=== PATIENT | female | born 1990 ===

== ENCOUNTER 2018-08-02 20:46 | Inpatient (IN) | payer MEDICAID ==
[2018-08-02 22:53] LABS: Hematocrit 38.6 % (30.3-42.9); Hemoglobin 13.6 gm/dl (10.1-14.3); Mean Corpuscular HGB Conc 35 % (30-34); Mean Corpuscular Volume 83 fl (79-97); Platelet Count 152 K/mm3 (140-440); Red Blood Count 4.66 M/mm3 (3.65-5.03); Red Cell Distribution Width 14.7 % (13.2-15.2)
[2018-08-02] MEDS ORDERED: NARCAN 0.4 MG/1 ML IV PRN (22:53)
[2018-08-02] MEDS ORDERED: SUBLIMAZE IV PRN (22:53)
[2018-08-02] MEDS ORDERED: XYLOCAINE 2% INFILTRATI ONE (22:53)
[2018-08-02] MEDS ORDERED: NUBAIN IV PRN (22:53)
[2018-08-02] MEDS ORDERED: BRETHINE IVP PRN (22:53)
[2018-08-02] MEDS ORDERED: MINERAL OIL PO PRN (22:53)
[2018-08-02] MEDS ORDERED: CERVIDIL VG ONE (22:53)
[2018-08-02] MEDS ORDERED: BRETHINE SUB-Q PRN (22:53)
[2018-08-02] MEDS ORDERED: PITOCin/NS 30 UNIT/500ML 30 UNITS/500 ML BAG IV SCH ×2 (23:00)
[2018-08-02] MEDS ORDERED: PITOCin/NS 20 UNIT/1000ML DRIP 20 UNITS/1,000 ML BAG IV SCH (23:00)
--- NOTE | 2018-08-02 23:02 | History and Physical Report ---
History of Present Illness Date of examination: 08/02/18 Date of admission: 08/02/18 20:46 Chief complaint: Here for induction History of present illness: Pt is a 27 yo at 40.6 wks who presents for IOL for obesity. She has received care with [facility] since the first trimester. Her has been complicated by obesity, hydrocele, and large for gestational age fetus. She is GBS negative. Reports positive movement, denies LOF/bleeding/contractions. Past History Past Medical History: no pertinent history Past Surgical History: no surgical history - Obstetrical History Expected Date of Delivery: 07/27/18 Actual Gestation: 40 Week(s) 6 Day(s) : 1 Para: 0 Medications and Allergies Allergies Allergy/AdvReac Type Severity Reaction Status Date / Time No Known Allergies Allergy Unverified 08/02/18 21:42 Active Meds: Active Medications Butorphanol Tartrate (Stadol) 1 mg IV Q2H PRN PRN Reason: Pain, Moderate (4-6) Dinoprostone (Cervidil) 10 mg VG ONCE ONE Stop: 08/02/18 22:54 Ephedrine Sulfate (Ephedrine Sulfate) 10 mg IV Q2M PRN PRN Reason: Hypotension Fentanyl (Sublimaze) 100 mcg IV Q2H PRN PRN Reason: Labor Pain Oxytocin/Sodium Chloride (Pitocin/Ns 20 Unit/1000ml Drip) 20 units in 1,000 mls @ 125 mls/hr IV DIRECT FITO Oxytocin/Sodium Chloride (Pitocin/Ns 30 Unit/500ml) 30 units in 500 mls @ 1 mls/hr IV TITR FITO; Protocol Oxytocin/Sodium Chloride (Pitocin/Ns 30 Unit/500ml) 30 units in 500 mls @ 2 mls/hr IV TITR FITO; Protocol Lactated Ringer's (Lactated Ringers) 1,000 mls @ 125 mls/hr IV DIRECT FITO Lidocaine (Xylocaine 2%) 20 ml INFILTRATI ONCE ONE Stop: 08/02/18 22:54 Mineral Oil (Mineral Oil) 30 ml PO QHS PRN PRN Reason: Constipation Nalbuphine HCl (Nubain) 10 mg IV Q2H PRN PRN Reason: Pain, Moderate (4-6) Naloxone HCl (Narcan 0.4 Mg/1 Ml) 0.1 mg IV Q2MIN PRN PRN Reason: Res Rate </= 8 or 02 SAT < 92% Terbutaline Sulfate (Brethine) 0.25 mg SUB-Q ONCE PRN PRN Reason: Hyperstimulation/Hypertonicity Terbutaline Sulfate (Brethine) 0.25 mg IVP ONCE PRN PRN Reason: Hyperstimulation/Hypertonicity Review of Systems All systems: negative - Vital Signs Vital signs: Vital Signs Pulse BP 100 H 147/90 08/02/18 21:29 08/02/18 21:29 Temp Pulse Resp BP Pulse Ox 98.6 F 104 H 18 111/73 96 08/02/18 22:07 08/02/18 22:55 08/02/18 22:07 08/02/18 22:09 08/02/18 22:55 - Physical Exam Cardiovascular: Regular rate, Normal S1, Normal S2, No murmurs Lungs: Positive: Clear to auscultation, Normal air movement Abdomen: Positive: normal appearance (gravid), soft Genitourinary (Female): Positive: normal external genitalia, normal perenium Vagina: Positive: normal moisture Uterus: Positive: normal size (gravid), normal contour Extremities: Positive: normal - Obstetrical FHR: auscultation normal, category 1 Uterine Contraction Monitor Mode: External Cervical Dilatation: 1 Cervical Effacement Percentage: 50 station: -3 Uterine Contraction Pattern: Absent Results Result Diagrams: 08/02/18 22:28 Abnormal lab results 08/02/18 Range/Units 22:28 WBC 12.3 H (4.5-11.0) K/mm3 MCHC 35 H (30-34) % All other labs normal. Ultrasound: report reviewed (EFW 3887g, DUTCH 7.84cm) Assessment and Plan A: 27 yo at 40.6 wks EGA Obesity Fetus AGA per ultrasound hydrocele Cervix not favorable for induction GBS negative P: Initiate Cervidil NICU in room for delivery Re-assess progress after 12 hours of Cervidil or sooner PRN Anticipate
--- NOTE | 2018-08-03 08:35 | Ultrasound Report ---
PROCEDURE: US OB FOLLOW UP TECHNIQUE: Limited third trimester transabdominal obstetrical ultrasound of the pelvis utilizing gra yscale, color Doppler and M-mode technique HISTORY: EFW COMPARISONS: None provided FINDINGS: A single living intrauterine is present in cephalic presentation with recorded cardiac acti vity of 150 bpm and subjectively normal amniotic fluid volume and amniotic fluid index of approximate ly 7.5 cm. Incompletely visualized placenta and cervix. Biparietal diameter is 9.6 cm Head circumference is 34.6 cm Abdominal circumference is 35.9 cm Femoral length is 7.7 cm Composited biometric measurements corresponds to estimated gestational age of 39 weeks 5 days a nd delivery date of 08/04/2018. Estimated weight is 3887 g IMPRESSION: Single living intrauterine with subjectively normal amniotic fluid volume and estimated fet al weight of 3887 g. This document is electronically signed by Bryan Baker MD., August 03 2018 08:32:59 AM ET
--- NOTE | 2018-08-03 12:37 | Event Note ---
Date: 08/03/18 Late entry. Pt examined around 830 am. Pt slightly uncomfortable with cervidil in place. Category II tracing. Cervidil due to be removed at 1145 am. Routine intrapartum care.
[2018-08-03] MEDS: CYTOTEC VG SCH ×3 (13:58→21:30)
[2018-08-03] MEDS: LACTATED RINGERS 1,000 ML IV SCH (23:04)
[2018-08-03] MEDS: STADOL IV PRN (23:40)
[2018-08-04] MEDS: LACTATED RINGERS 1,000 ML IV SCH ×3 (00:27→15:11)
[2018-08-04] MEDS: STADOL IV PRN (03:39)
--- NOTE | 2018-08-04 05:30 | Event Note ---
Date: 08/04/18 Late Entry. Called by pt's ~3 am secondary to pt in pain. Category II tracing. Cervix /-2. Continue routine intrapartum care.
[2018-08-04] MEDS ORDERED: NARCAN 2 MG/2 ML IV PRN (06:42)
--- NOTE | 2018-08-04 06:44 | Anesthesia Day of Surgery ---
Anesthesia Day of Surgery - Day of Surgery Patient Examined: Yes Patient H&P Reviewed: Yes Patient is NPO: No
--- NOTE | 2018-08-04 06:44 | Anesthesia Consultation ---
Anesthesia Consult and Med Hx Date of service: 08/04/18 - Airway Anesthetic Teeth Evaluation: Good ROM Head & Neck: Adequate Mental/Hyoid Distance: Adequate Mallampati Class: Class I Intubation Access Assessment: Probably Good - Pulmonary Exam CTA: Yes - Cardiac Exam Cardiac Exam: RRR - Pre-Operative Health Status ASA Pre-Surgery Classification: ASA2 Proposed Anesthetic Plan: Epidural - Pulmonary Hx Asthma: No COPD: No Hx Pneumonia: No - Cardiovascular System Hx Hypertension: No - Central Nervous System Hx Seizures: No Hx Psychiatric Problems: No - Endocrine Hx Renal Disease: No Hx End Stage Renal Disease: No Hx Hypothyroidism: No Hx Hyperthyroidism: No - Hematic Hx Anemia: No Hx Sickle Cell Disease: No - Other Systems Hx Alcohol Use: No
[2018-08-04] MEDS: fentaNYL-BUPIV 2 MCG/ML-0.125% 200 MCG/100 ML BAG EPIDURAL SCH ×2 (07:39→16:00)
--- NOTE | 2018-08-04 12:28 | Progress Note ---
Assessment and Plan A: IUP at 41w1d Undergoing induction of labor Obesity GBS negative P: Continue routine intrapartum care IUPC placed Closely monitor maternal and status Subjective - Subjective Date of service: 08/04/18 Principal diagnosis: IUP at 41w1d undergoing induction, obesity Interval history: Pt comfortable with epidural now. Patient reports: no new complaints Objective - Vital Signs Vital Signs: Vital Signs - 12hr 08/04/18 08/04/18 08/04/18 00:29 00:31 00:43 Temperature 98.5 F Pulse Rate 109 H 104 H Respiratory 20 Rate Blood Pressure 98/52 O2 Sat by Pulse 93 Oximetry 08/04/18 08/04/18 08/04/18 01:14 02:43 03:13 Temperature Pulse Rate 104 H 85 88 Respiratory Rate Blood Pressure 106/51 116/59 92/54 O2 Sat by Pulse Oximetry 08/04/18 08/04/18 08/04/18 03:39 03:43 04:13 Temperature Pulse Rate 89 91 H Respiratory 16 Rate Blood Pressure 97/55 103/59 O2 Sat by Pulse Oximetry 08/04/18 08/04/18 08/04/18 05:44 05:46 05:49 Temperature Pulse Rate 96 H 106 H 103 H Respiratory Rate Blood Pressure 118/64 110/61 O2 Sat by Pulse 98 Oximetry 08/04/18 08/04/18 08/04/18 05:51 05:53 05:55 Temperature Pulse Rate 90 103 H 99 H Respiratory Rate Blood Pressure 111/61 110/64 113/66 O2 Sat by Pulse 97 Oximetry 08/04/18 08/04/18 08/04/18 05:56 05:57 05:59 Temperature Pulse Rate 95 H 109 H 101 H Respiratory Rate Blood Pressure 117/57 115/60 O2 Sat by Pulse 98 Oximetry 08/04/18 08/04/18 08/04/18 06:00 06:01 06:03 Temperature Pulse Rate 102 H 105 H 110 H Respiratory Rate Blood Pressure 109/59 121/65 O2 Sat by Pulse 97 Oximetry 08/04/18 08/04/18 08/04/18 06:05 06:06 06:09 Temperature Pulse Rate 102 H 102 H 98 H Respiratory Rate Blood Pressure 121/64 118/70 O2 Sat by Pulse 96 Oximetry 06/29/19 06/29/19 06/29/19 06:11 06:13 06:15 Temperature Pulse Rate 92 H 104 H 100 H Respiratory Rate Blood Pressure 114/72 117/68 114/67 O2 Sat by Pulse 96 Oximetry 08/04/18 08/04/18 08/04/18 06:23 06:24 06:25 Temperature 98.1 F Pulse Rate 101 H 111 H Respiratory 20 Rate Blood Pressure 110/68 118/71 O2 Sat by Pulse Oximetry 08/04/18 08/04/18 08/04/18 06:29 06:31 06:33 Temperature Pulse Rate 105 H 103 H 100 H Respiratory Rate Blood Pressure 120/66 121/60 110/55 O2 Sat by Pulse Oximetry 08/04/18 08/04/18 08/04/18 06:34 06:35 06:36 Temperature Pulse Rate 99 H 102 H 57 L Respiratory Rate Blood Pressure 115/56 O2 Sat by Pulse 96 89 Oximetry 08/04/18 08/04/18 08/04/18 06:37 06:39 06:41 Temperature Pulse Rate 96 H 94 H 105 H Respiratory Rate Blood Pressure 124/65 119/69 115/65 O2 Sat by Pulse 95 Oximetry 08/04/18 08/04/18 08/04/18 06:43 06:44 06:45 Temperature Pulse Rate 112 H 112 H 112 H Respiratory Rate Blood Pressure 111/59 108/57 O2 Sat by Pulse 96 Oximetry 08/04/18 08/04/18 08/04/18 06:49 06:51 06:52 Temperature Pulse Rate 106 H 105 H 93 H Respiratory Rate Blood Pressure 122/58 121/61 86/37 O2 Sat by Pulse 95 Oximetry 08/04/18 08/04/18 08/04/18 06:53 06:54 06:55 Temperature Pulse Rate 97 H 102 H 96 H Respiratory Rate Blood Pressure 85/42 O2 Sat by Pulse 94 94 Oximetry 08/04/18 08/04/18 08/04/18 06:57 06:59 07:01 Temperature Pulse Rate 100 H 102 H 100 H Respiratory Rate Blood Pressure 87/43 92/43 91/44 O2 Sat by Pulse 96 Oximetry 08/04/18 08/04/18 08/04/18 07:04 07:09 07:14 Temperature Pulse Rate 120 H 104 H 102 H Respiratory Rate Blood Pressure 98/50 O2 Sat by Pulse 98 96 96 Oximetry 08/04/18 08/04/1808/04/19 07:19 07:24 07:29 Temperature Pulse Rate 101 H 102 H 102 H Respiratory Rate Blood Pressure O2 Sat by Pulse 96 96 96 Oximetry 08/04/18 08/04/18 08/04/18 07:34 07:36 07:38 Temperature Pulse Rate 101 H 101 H 96 H Respiratory Rate Blood Pressure 87/48 119/62 O2 Sat by Pulse 96 Oximetry 08/04/18 08/04/18 08/04/18 07:39 07:44 07:45 Temperature 98.3 F Pulse Rate 100 H 96 H Respiratory 16 Rate Blood Pressure O2 Sat by Pulse 96 96 100 Oximetry 08/04/18 08/04/18 08/04/18 07:49 07:54 07:59 Temperature Pulse Rate 97 H 91 H 91 H Respiratory Rate Blood Pressure O2 Sat by Pulse 96 95 96 Oximetry 08/04/18 08/04/18 08/04/18 08:04 08:09 08:14 Temperature Pulse Rate 92 H 99 H 95 H Respiratory Rate Blood Pressure O2 Sat by Pulse 96 96 95 Oximetry 08/04/18 08/04/18 08/04/18 08:15 08:16 08:19 Temperature 98.2 F Pulse Rate 100 H 104 H Respiratory 14 Rate Blood Pressure 97/50 O2 Sat by Pulse 96 Oximetry 08/04/18 08/04/18 08/04/18 08:24 08:29 08:34 Temperature Pulse Rate 98 H 96 H 94 H Respiratory Rate Blood Pressure O2 Sat by Pulse 96 95 95 Oximetry 08/04/18 08/04/18 08/04/18 08:39 08:44 08:48 Temperature Pulse Rate 98 H 94 H 88 Respiratory Rate Blood Pressure 84/41 O2 Sat by Pulse 95 96 Oximetry 08/04/18 08/04/18 08/04/18 08:49 08:54 08:59 Temperature Pulse Rate 91 H 92 H 94 H Respiratory Rate Blood Pressure O2 Sat by Pulse 96 95 96 Oximetry 08/04/18 08/04/18 08/04/18 09:04 09:09 09:14 Temperature Pulse Rate 89 88 89 Respiratory Rate Blood Pressure O2 Sat by Pulse 95 95 95 Oximetry 08/04/18 08/04/18 08/04/18 09:16 09:19 09:24 Temperature Pulse Rate 90 88 88 Respiratory Rate Blood Pressure 83/43 O2 Sat by Pulse 95 96 Oximetry 08/04/18 08/04/18 08/04/18 09:29 09:34 09:39 Temperature Pulse Rate 89 90 93 H Respiratory Rate Blood Pressure O2 Sat by Pulse 95 96 95 Oximetry 08/04/18 08/04/18 08/04/18 09:44 09:46 09:49 Temperature Pulse Rate 92 H 90 113 H Respiratory Rate Blood Pressure 89/44 O2 Sat by Pulse 95 96 Oximetry 08/04/18 08/04/18 08/04/18 09:54 09:59 10:04 Temperature Pulse Rate 89 94 H 103 H Respiratory Rate Blood Pressure O2 Sat by Pulse 95 95 97 Oximetry 08/04/18 08/04/18 08/04/18 10:09 10:14 10:17 Temperature Pulse Rate 110 H 99 H 97 H Respiratory Rate Blood Pressure 91/47 O2 Sat by Pulse 96 96 Oximetry 08/04/18 08/04/18 08/04/18 10:19 10:24 10:29 Temperature Pulse Rate 94 H 93 H 90 Respiratory Rate Blood Pressure O2 Sat by Pulse 95 95 95 Oximetry 08/04/18 08/04/18 08/04/18 10:32 10:34 10:39 Temperature Pulse Rate 90 94 H 93 H Respiratory Rate Blood Pressure O2 Sat by Pulse 94 95 95 Oximetry 08/04/18 08/04/18 08/04/18 10:44 10:47 10:49 Temperature Pulse Rate 89 109 H 127 H Respiratory Rate Blood Pressure 106/53 O2 Sat by Pulse 95 95 Oximetry 08/04/18 08/04/18 08/04/18 10:54 10:56 10:59 Temperature Pulse Rate 94 H 100 H 90 Respiratory Rate Blood Pressure O2 Sat by Pulse 95 94 95 Oximetry 08/04/18 08/04/18 08/04/18 11:04 11:09 11:14 Temperature Pulse Rate 91 H 91 H 107 H Respiratory Rate Blood Pressure O2 Sat by Pulse 95 96 96 Oximetry 08/04/18 08/04/18 08/04/18 11:18 11:19 11:21 Temperature Pulse Rate 89 100 H 92 H Respiratory Rate Blood Pressure 89/45 O2 Sat by Pulse 97 94 Oximetry 08/04/18 08/04/18 08/04/18 11:24 11:29 11:34 Temperature Pulse Rate 94 H 89 88 Respiratory Rate Blood Pressure O2 Sat by Pulse 96 95 95 Oximetry 08/04/18 08/04/18 08/04/18 11:39 11:44 11:47 Temperature Pulse Rate 90 88 86 Respiratory Rate Blood Pressure 90/44 O2 Sat by Pulse 96 95 Oximetry 08/04/18 08/04/18 08/04/18 11:48 11:49 11:54 Temperature Pulse Rate 107 H 92 H 89 Respiratory Rate Blood Pressure O2 Sat by Pulse 94 96 95 Oximetry 08/04/18 08/04/18 08/04/18 11:59 12:04 12:09 Temperature Pulse Rate 90 88 89 Respiratory Rate Blood Pressure O2 Sat by Pulse 95 95 95 Oximetry 08/04/18 08/04/18 08/04/18 12:14 12:16 12:19 Temperature Pulse Rate 104 H 122 H 111 H Respiratory Rate Blood Pressure 111/56 O2 Sat by Pulse 98 97 Oximetry 08/04/18 12:24 Temperature Pulse Rate 129 H Respiratory Rate Blood Pressure O2 Sat by Pulse 96 Oximetry - Exam Breasts: deferred Abdomen: Present: soft (obese, gravid ) Uterus: Present: normal (gravid ) FHR: auscultation normal Uterine Contraction Monitor Mode: External Cervical Dilatation: 5 Cervical Effacement Percentage: 100 station: -2 Uterine Contraction Pattern: Irregular Uterine Contraction Intensity: Moderate Extremities: edema - Labs Labs: Abnormal Labs 08/02/18 22:28 WBC 12.3 H MCHC 35 H
[2018-08-04] MEDS ORDERED: ZOFRAN ONE (12:51)
[2018-08-04] MEDS ORDERED: ZOFRAN IV ONE (13:00)
--- NOTE | 2018-08-04 15:17 | Event Note ---
Date: 08/04/18 Category II tracing. Cervix /. Continue routine intrapartum care.
[2018-08-04] MEDS ORDERED: MARCAINE 0.5% INFILTRATI ONE ×2 (18:55→19:47)
[2018-08-04] MEDS ORDERED: ANCEF/STERILE WATER 2 GM/20 ML 2 GM/20 ML SYRINGE IV NR (19:00)
[2018-08-04] MEDS ORDERED: PITOCin/NS 20 UNIT/1000ML DRIP 20 UNITS/1,000 ML BAG IV SCH ×2 (19:00→22:00)
[2018-08-04] MEDS ORDERED: BICITRA PO ONE (19:00)
[2018-08-04] MEDS ORDERED: PEPCID IV ONE (19:00)
[2018-08-04] MEDS ORDERED: LACTATED RINGERS 1,000 ML IV SCH (19:00)
[2018-08-04] MEDS ORDERED: REGLAN IV ONE (19:00)
--- NOTE | 2018-08-04 19:08 | Event Note ---
Date: 08/04/18 Pt's cervix has remained 8 cm over two hours with adequate contractile activity. Plan to proceed with primary delivery. Anesthesia aware.
[2018-08-04] MEDS ORDERED: PHENERGAN PO PRN (19:23)
[2018-08-04] MEDS ORDERED: NARCAN 0.4 MG/1 ML IV PRN ×2 (19:23→21:46)
[2018-08-04] MEDS ORDERED: ZOFRAN IV PRN ×2 (19:23→21:46)
[2018-08-04] MEDS ORDERED: PHENERGAN PR PRN (19:23)
[2018-08-04] MEDS ORDERED: NUBAIN IV PRN (19:24)
[2018-08-04] MEDS ORDERED: METHERGINE IM ONE (19:44)
[2018-08-04] MEDS ORDERED: SODIUM CHLORIDE FLUSH SYRINGE 10 ML IV NR ×2 (20:00→22:00)
[2018-08-04] MEDS ORDERED: TYLENOL PO SCH ×2 (20:00)
--- NOTE | 2018-08-04 20:56 | Operative Report ---
Operative Report Operative Report: Date of procedure:August 04, 2018 Preoperative diagnosis: 1) IUP at 41w1d 2) Arrest of Dilation 3) Nonreassuring status - tachycardia 4) Obesity Postoperative diagnosis: Same 5) Chorioamnionitis Procedure:Primary low transverse section Surgeon: Nataliia Rees M.D. Anesthesia: Regional Findings: 1) Viable male , Apgars 9 and 9, weight 4991g, (11 lb 0 oz) in cephalic presentation. Occiput posterior 2) Normal-appearing uterus ovaries and tubes Estimated blood loss: 1000 mL IV fluids: 2000 mL Urine output: 400 mL, clear at the end of the procedure Drains: Urena to gravity Specimens: Placenta to pathology Complications: None. Counts correct x 3 Disposition: Stable to PACU Indication for procedure: Pt is a 27 year old female primigravida at 41w1d in labor arrested at 8 cm and heart tones became consistently 170s. The decision was made to proceed with delivery. Operation in detail: After the risks, benefits, alternatives and complications were explained to the patient she gave informed consent for the procedure. She was subsequently taken to the operating room where regional anesthesia was noted to be adequate. She was subsequently placed in the dorsal supine position with leftward tilt and prepped and draped in a normal sterile fashion. heart tones were noted to be in the 170s prior to incision. A timeout was performed. A Pfannenstiel skin incision was made with the knife and carried down to the layer of the fascia with the Bovie. The fascia was incised in the midline and the fascial incision was extended bilaterally with the Bovie. Attention was then turned to the superior aspect of the incision which was grasped with two Kochers, tented up, and dissected off the rectus muscles. Attention was then turned to the inferior aspect of the incision which was grasped with two Kochers, tented up and dissected off the rectus muscles. The rectus muscles were then in the midline. The peritoneum was then entered bluntly. The peritoneal incision was extended with good visualization of the bladder. The peritoneal incision was then stretched. An Isaiah self-retaining retractor was placed for visualization. The bladder blade was placed. A transverse incision was made in the lower uterine segment with a knife and extended bilaterally with the bandage scissors. The head was delivered without difficulty followed by shoulders and body. was bulb suctioned at delivery. The cord was clamped and cut and the was handed to NICU staff in attendance. Cord blood was collected. The placenta was then delivered manually. The uterus was then cleared of all clots and debris. The hysterotomy was then reapproximated with 0 Vicryl in a running locked fashion. A second layer of the same suture was used in imbricating fashion. The hysterotomy was inspected and hemostasis was noted. The Isaiah self-retaining retractor was removed. The gutters were irrigated and cleared of all clots and debris. The hysterotomy was again inspected and noted to be hemostatic. Surgicel was placed over the hysterotomy. The peritoneum was reapproximated with 2-0 Vicryl in a running fashion incorporating the rectus muscles. The fascia was reapproximated with 0 Vicryl in a running fashion. The subcutaneous tissue was reapproximated with 3- 0 Vicryl in a running fashion. The skin was reapproximated with 4-0 Vicryl in a subcuticular fashion. The incision was then covered with steri strips and a pressure dressing. The procedure was then ended. The patient tolerated the procedure well and was taken to the PACU in stable condition. All instrument, lap, and needle counts were correct 3.
--- NOTE | 2018-08-04 20:56 | Procedure Note ---
OB Delivery Note - Delivery Date of Delivery: 08/04/18 Surgeon: ARYAN ROWELL Estimated blood loss: 1000cc - Section Preop diagnosis: arrest of dilation, other (Nonreassuring status ) Postop diagnosis: same section procedure: section, primary low transverse Disposition: PACU Complications: none Narrative: Please see operative note. - A at 1 minute: 9 at 5 minutes: 9 Infant Gender: Male (4991g (11 lbs 0 oz) @ 1959 pm)
--- NOTE | 2018-08-04 21:11 | Post Anesthesia Evaluation ---
- Post Anesthesia Evaluation Patient Participated: Yes Airway Patent: Yes Stable Respiratory Function: Yes Nausea/Vomiting: No Temp > 96.8F: Yes Pain Manageable: Yes Adequeate Hydration: Yes Anesthesia Complications: No Block Receding Appropriately: Yes
[2018-08-04] MEDS ORDERED: MORPHINE IV PRN (21:46)
[2018-08-04] MEDS ORDERED: MYLICON PO PRN (21:46)
[2018-08-04] MEDS ORDERED: TUCKS PAD TP PRN (21:46)
[2018-08-04] MEDS ORDERED: LANSINOH TP PRN (21:46)
[2018-08-04] MEDS ORDERED: MILK OF MAGNESIA PO PRN (21:46)
[2018-08-04] MEDS ORDERED: CLEOCIN 900 MG/50 mL 900 MG/50 ML BAG IV SCH (22:00)
[2018-08-04] MEDS ORDERED: D5LR 1,000 ML IV SCH (22:00)
[2018-08-04] MEDS: TORADOL IV SCH (22:14)
[2018-08-04] MEDS: TYLENOL PO SCH (23:27)
[2018-08-05] MEDS ORDERED: AMPICILLIN/NS 2 GM/100 ML 2 GM/100 ML BAG IV SCH
[2018-08-05] MEDS: GENTAMICIN/NS 120MG/100ML 120 MG/100 ML BAG IV SCH ×4 (00:49→23:12)
[2018-08-05] MEDS: TORADOL IV SCH ×2 (02:59→21:00)
[2018-08-05] MEDS ORDERED: M-M-R II VACCINE SUB-Q ONE (06:00)
[2018-08-05] MEDS ORDERED: BOOSTRIX IM ONE (06:00)
[2018-08-05] MEDS: TYLENOL PO SCH ×2 (07:11→20:00)
[2018-08-05] MEDS: TORADOL IV PRN ×2 (08:56→14:19)
[2018-08-05] MEDS: AMPICILLIN/NS 2 GM/100 ML 2 GM/100 ML BAG IV SCH ×2 (09:11→17:06)
[2018-08-05] MEDS: CLEOCIN 900 MG/50 mL 900 MG/50 ML BAG IV SCH ×2 (10:21→18:13)
[2018-08-05 11:07] LABS: Hematocrit 34.5 % (30.3-42.9); Hemoglobin 11.3 gm/dl (10.1-14.3)
--- NOTE | 2018-08-05 12:35 | Progress Note ---
Assessment and Plan A: POD#1 s/p primary section at term, macrosomia P: Routine care. Subjective - Subjective Date of service: 08/05/18 Principal diagnosis: IUP at 41w1d undergoing induction, obesity Interval history: Pt without complaints presently. Patient reports: pain well controlled, no voiding normally (Urena in place ), no flatus, no bowel movement, no ambulating normally (SCDs in place ) : doing well Objective - Vital Signs Latest vital signs: Vital Signs Temp Pulse Resp BP Pulse Ox 08/05/18 09:03 99.0 F 97 H 20 105/60 95 08/05/18 04:16 98.9 F 89 18 100/55 95 08/05/18 02:59 18 08/04/18 23:04 99.9 F H 73 20 105/52 95 08/04/18 22:15 100.0 F H 83 15 105/60 98 08/04/18 22:14 18 08/04/18 22:00 97 H 16 114/51 99 08/04/18 21:45 90 17 115/67 99 08/04/18 21:30 82 12 103/77 98 08/04/18 21:25 87 12 108/56 98 08/04/18 21:20 89 13 100/65 98 08/04/18 21:15 82 14 108/60 98 08/04/18 21:10 91 H 10 L 107/61 98 08/04/18 21:05 99.3 F 88 10 L 111/61 98 08/04/18 18:55 109 H 99 08/04/18 18:50 102 H 98 08/04/18 18:46 93 H 114/58 08/04/18 18:45 98 H 98 08/04/18 18:40 90 97 08/04/18 18:35 85 97 08/04/18 18:30 93 H 98 08/04/18 18:25 93 H 96 08/04/18 18:20 106 H 97 08/04/18 18:16 98 H 102/56 94 08/04/18 18:15 105 H 95 08/04/18 18:10 110 H 96 08/04/18 18:05 105 H 98 08/04/18 18:00 99.3 F 101 H 95 08/04/18 17:55 101 H 97 08/04/18 17:50 97 H 97 08/04/18 17:47 91 H 105/59 08/04/18 17:45 95 H 96 08/04/18 17:40 106 H 97 08/04/18 17:35 121 H 88 08/04/18 17:32 112 H 94 08/04/18 17:30 105 H 97 08/04/18 17:25 115 H 95 08/04/18 17:20 111 H 97 08/04/18 17:17 111 H 119/70 08/04/18 17:15 103 H 96 08/04/18 17:10 114 H 97 08/04/18 17:05 103 H 97 08/04/18 17:00 101 H 95 08/04/18 16:55 104 H 96 08/04/18 16:51 95 H 94 08/04/18 16:50 94 H 96 08/04/18 16:46 96 H 109/65 08/04/18 16:45 100 H 96 08/04/18 16:40 104 H 95 08/04/18 16:37 98.9 F 08/04/18 16:35 106 H 96 08/04/18 16:30 122 H 96 08/04/18 16:25 101 H 94 08/04/18 16:20 99 H 95 08/04/18 16:18 101 H 94 08/04/18 16:16 104 H 108/61 08/04/18 16:15 100 H 96 08/04/18 16:11 105 H 94 08/04/18 16:10 97 H 96 08/04/18 16:05 103 H 94 08/04/18 16:04 102 H 94 08/04/18 16:00 114 H 95 08/04/18 15:55 110 H 97 08/04/18 15:50 112 H 94 08/04/18 15:47 114 H 101/50 08/04/18 15:45 109 H 94 08/04/18 15:40 117 H 97 08/04/18 15:35 105 H 95 08/04/18 15:32 94 08/04/18 15:30 104 H 93 08/04/18 15:25 104 H 93 08/04/18 15:20 108 H 93 08/04/18 15:16 108 H 92/55 08/04/18 15:15 107 H 94 08/04/18 15:10 104 H 94 08/04/18 15:08 107 H 94 08/04/18 15:05 101 H 96 08/04/18 15:00 98.9 F 94 H 95 08/04/18 14:55 98 H 96 08/04/18 14:50 95 H 96 08/04/18 14:46 109 H 98/50 93 08/04/18 14:45 100 H 96 08/04/18 14:40 96 H 97 08/04/18 14:35 106 H 95 08/04/18 14:30 110 H 96 08/04/18 14:28 103 H 94 08/04/18 14:25 107 H 95 08/04/18 14:20 105 H 94 08/04/18 14:17 104 H 106/56 94 08/04/18 14:15 102 H 95 08/04/18 14:11 104 H 94 08/04/18 14:10 95 H 95 08/04/18 14:04 100 H 95 08/04/18 14:00 98.2 F 08/04/18 13:59 116 H 96 08/04/18 13:54 119 H 96 08/04/18 13:49 110 H 96 08/04/18 13:47 88 102/57 08/04/18 13:44 93 H 95 08/04/18 13:43 95 H 94 08/04/18 13:39 83 95 08/04/18 13:38 83 94 08/04/18 13:34 91 H 95 08/04/18 13:31 91 H 94 08/04/18 13:29 88 94 08/04/18 13:25 86 94 08/04/18 13:24 86 95 08/04/18 13:19 89 95 08/04/18 13:17 83 101/55 08/04/18 13:15 99 H 94 08/04/18 13:14 86 95 08/04/18 13:09 89 95 08/04/18 13:04 91 H 96 08/04/18 12:59 98 H 95 08/04/18 12:54 103 H 96 08/04/18 12:53 92 H 101/52 08/04/18 12:49 107 H 96 08/04/18 12:47 103 H 89/48 08/04/18 12:44 107 H 96 08/04/18 12:39 128 H 96 Intake and Output 08/04/18 08/05/18 08/05/18 22:59 06:59 14:59 Intake Total 3411.066 100 Output Total 2200 200 600 Balance 1211.066 -100 -600 Intake: IV 3411.066 100 GENTAMICIN/NS 120MG/100ML 100 120 mg In 100 ml @ 200 mls/hr IV Q8H FITO Rx#: [id number] Lactated Ringers 1,000 ml 950 @ 125 mls/hr IV DIRECT FITO Rx#:[id number] PITOCin/NS 30 UNIT/500ML 161.066 30 units In 500 ml @ 2 mls/hr IV TITR FITO Rx#: [id number] Output: Urine 2200 200 600 Indwelling Catheter 200 600 Uretheral (Urena) 850 200 Other: Total, Output Amount 200 600 Estimated Blood Loss 1,000 - Exam Breasts: Present: deferred Cardiovascular: Present: Regular rate Lungs: Present: Clear to auscultation Abdomen: Present: soft (obese ), abnormal bowel sounds (hyppoactive ) Uterus: Present: fundal height at umbilicus Extremities: Present: edema Incision: Present: dressed
[2018-08-05] MEDS: IBUPROFEN PO PRN (23:10)
[2018-08-05] MEDS: MILK OF MAGNESIA PO SCH ×2 (23:10→23:14)
[2018-08-06] MEDS: AMPICILLIN/NS 2 GM/100 ML 2 GM/100 ML BAG IV SCH ×5 (00:31→18:39)
[2018-08-06] MEDS: PERCOCET 5/325 PO PRN ×2 (00:32→16:45)
[2018-08-06] MEDS: CLEOCIN 900 MG/50 mL 900 MG/50 ML BAG IV SCH ×3 (02:00→16:47)
[2018-08-06] MEDS: TYLENOL PO SCH ×2 (02:00→07:21)
[2018-08-06] MEDS: TORADOL IV SCH ×2 (03:00→08:55)
[2018-08-06] MEDS: GENTAMICIN/NS 120MG/100ML 120 MG/100 ML BAG IV SCH ×4 (04:30→22:43)
[2018-08-06] MEDS: MILK OF MAGNESIA PO SCH ×3 (06:30→18:39)
[2018-08-06] MEDS: IBUPROFEN PO PRN (06:32)
--- NOTE | 2018-08-06 08:43 | Progress Note ---
Assessment and Plan A/P POD 2 c/sec routine post op care d/c home tomorrow Subjective - Subjective Date of service: 08/06/18 Principal diagnosis: IUP at 41w1d undergoing induction, obesity Patient reports: appetite normal, voiding normally, pain well controlled, flatus, ambulating normally : doing well Objective - Vital Signs Latest vital signs: Vital Signs Temp Pulse Resp BP Pulse Ox 08/06/18 00:50 105 H 08/06/18 00:47 98.4 F 103 H 18 104/53 97 08/05/18 17:47 98.3 F 110 H 18 103/62 98 08/05/18 12:22 98.7 F 108 H 18 105/73 98 08/05/18 09:03 99.0 F 97 H 20 105/60 95 Intake and Output 08/05/18 08/06/18 08/06/18 23:59 07:59 15:59 Intake Total 610 460 Output Total 300 Balance 310 460 Intake: IV 250 100 AMPICILLIN/NS 2 GM/100 ML 100 100 2 gm In 100 ml @ 100 mls /hr IV Q6H FITO Rx#: [id number] CLEOCIN 900 MG/50 mL 900 50 mg In 50 ml @ 100 mls/hr IV Q8H FITO Rx#:[id number] GENTAMICIN/NS 120MG/100ML 100 120 mg In 100 ml @ 200 mls/hr IV Q8H FITO Rx#: [id number] Intake, Free Water 360 360 Output: Urine 300 Void 300 Other: Total, Output Amount 300 # Voids Void 2 2 - Exam Breasts: Present: normal Cardiovascular: Present: Regular rate, Normal S1 Lungs: Present: Clear to auscultation, Normal air movement Abdomen: Present: normal appearance, soft, normal bowel sounds. Absent: distention, tenderness, guarding Vulva: both: normal Uterus: Present: normal, firm, fundal height below umbilicus. Absent: bogginess, tenderness Extremities: Present: normal Incision: Present: normal, dry, intact
[2018-08-07] MEDS: MILK OF MAGNESIA PO SCH ×3 (00:19→11:38)
[2018-08-07] MEDS: AMPICILLIN/NS 2 GM/100 ML 2 GM/100 ML BAG IV SCH (00:20)
[2018-08-07] MEDS: IBUPROFEN PO PRN ×2 (00:20→10:40)
[2018-08-07] MEDS: PERCOCET 5/325 PO PRN ×3 (00:22→22:05)
[2018-08-07] MEDS ORDERED: AMPICILLIN/NS 2 GM/100 ML 2 GM/100 ML BAG IV SCH ×3 (01:00→06:00)
[2018-08-07] MEDS: CLEOCIN 900 MG/50 mL 900 MG/50 ML BAG IV SCH ×2 (02:03→11:50)
--- NOTE | 2018-08-07 08:39 | Progress Note ---
Assessment and Plan A/P POD 3 c/sec routine post op care slightly tachy will increase IV consider d/c home today Subjective - Subjective Date of service: 08/07/18 Principal diagnosis: IUP at 41w1d undergoing induction, obesity Patient reports: appetite normal, voiding normally, pain well controlled, flatus, ambulating normally : doing well Objective - Vital Signs Latest vital signs: Vital Signs Temp Pulse Resp BP BP Pulse Ox 08/07/18 07:53 97.4 F L 104 H 18 104/58 08/07/18 01:15 98.3 F 102 H 20 117/76 98 08/07/18 00:22 18 08/07/18 00:20 18 08/06/18 16:35 98.2 F 100 H 20 117/65 08/06/18 08:50 98.6 F 101 H 20 115/70 Intake and Output 08/06/18 08/07/18 08/07/18 23:59 07:59 15:59 Intake Total 471 600 Balance 471 600 Intake: IV 150 AMPICILLIN/NS 2 GM/100 ML 100 2 gm In 100 ml @ 100 mls /hr IV Q6H FITO Rx#: [id number] CLEOCIN 900 MG/50 mL 900 50 mg In 50 ml @ 100 mls/hr IV Q8H FITO Rx#:[id number] Oral 321 600 Other: Total, Intake Amount 321 480 # Voids Void 1 1 - Exam Breasts: Present: normal Cardiovascular: Present: Regular rate, Normal S1 Lungs: Present: Clear to auscultation, Normal air movement Abdomen: Present: normal appearance, soft, normal bowel sounds. Absent: distention, tenderness, guarding Vulva: both: normal Uterus: Present: normal, firm, fundal height below umbilicus. Absent: bogginess, tenderness Extremities: Present: normal Deep Tendon Reflex Grade: Normal +2 Incision: Present: normal, dry, intact
[2018-08-07] MEDS ORDERED: LACTATED RINGERS 1,000 ML IV ONE (10:00)
[2018-08-07] MEDS: GENTAMICIN/NS 120MG/100ML 120 MG/100 ML BAG IV SCH (11:00)
[2018-08-07 17:16] LABS: Basophils % (Auto) 0.5 % (0.0-1.8); Eosinophils # (Auto) 0.2 K/mm3 (0.0-0.4); Eosinophils % (Auto) 2.2 % (0.0-4.3); Hematocrit 31.5 % (30.3-42.9); Hemoglobin 10.6 gm/dl (10.1-14.3); Lymphocytes # (Auto) 1.3 K/mm3 (1.2-5.4); Lymphocytes % (Auto) 14.8 % (13.4-35.0); Mean Corpuscular HGB Conc 34 % (30-34); Mean Corpuscular Volume 84 fl (79-97); Monocytes # (Auto) 0.8 K/mm3 (0.0-0.8); Monocytes % (Auto) 8.7 % (0.0-7.3); Platelet Count 150 K/mm3 (140-440); Red Blood Count 3.73 M/mm3 (3.65-5.03); Red Cell Distribution Width 15.2 % (13.2-15.2)
[2018-08-08] MEDS: MILK OF MAGNESIA PO SCH ×2 (04:25→07:13)
[2018-08-08] MEDS: PERCOCET 5/325 PO PRN (05:36)
--- NOTE | 2018-08-08 09:48 | Progress Note ---
Assessment and Plan A: POD#4 s/p primary section at term, macrosomia; Chorioamniotis s/p Amp/Gent/Clinda discontinued yesterday. Afebrile throughout postop course P: Routine care. Discharge today with follow up in 1 week. Subjective - Subjective Date of service: 08/08/18 Principal diagnosis: IUP at 41w1d undergoing induction, obesity Interval history: Pt without complaints presently. Patient reports: appetite normal, voiding normally, pain well controlled, flatus, bowel movement, ambulating normally : doing well Objective - Vital Signs Latest vital signs: Vital Signs Temp Pulse Resp BP BP Pulse Ox 08/08/18 08:42 97.9 F 84 18 104/59 95 08/08/18 05:36 20 08/08/18 01:23 118/74 08/08/18 01:20 98.3 F 94 H 20 118/74 97 08/07/18 22:05 20 08/07/18 16:49 98.2 F 98 H 18 118/77 Intake and Output 08/07/18 08/08/18 08/08/18 22:59 06:59 14:59 Intake Total 720 360 Balance 720 360 Intake: Oral 720 360 Other: Total, Intake Amount 240 120 # Voids Void 1 1 - Exam Breasts: Present: deferred Cardiovascular: Present: Regular rate Lungs: Present: Clear to auscultation Abdomen: Present: soft (obese ), normal bowel sounds Uterus: Present: fundal height below umbilicus Extremities: Present: edema (1+) Incision: Present: intact - Labs Labs: Abnormal lab results 08/07/18 Range/Units 17:01 [place] % (Auto) 8.7 H (0.0-7.3) % Seg Neutrophils % 73.8 H (40.0-70.0) %
--- NOTE | 2018-08-08 09:53 | Discharge Summary ---
Providers - Providers Date of Admission: 08/02/18 20:46 Date of discharge: 08/08/18 Attending physician: EFFIE HODGES MD Primary care physician: EFFIE HODGES MD Hospitalization Reason for admission: induction of labor Delivery: Procedure: section, primary low transverse Procedure details: Please see operative note. Incision: intact Other procedures: none complications: none Discharge diagnosis: IUP at term delivered baby: male Hospital course: The patient was admitted for induction of labor and ultimately underwent a primary section secondary to arrest of dilation but she tolerated well. She did develop chorioamnionitis shortly before the delivery which was treated with ampicillin, clindamycin, and gentamicin. On postoperative day #3 the antibiotics were discontinued and the patient remained afebrile. By postoperative day #4 the patient met discharge criteria. She'll follow-up in 1 week in the office with Dr. Rees. Condition at discharge: Stable Disposition: TO HOME OR SELFCARE - Discharge Diagnoses (1) Obesity Status: Acute Qualifiers: Obesity type: unspecified obesity type Serious obesity comorbidity presence: unspecified whether serious comorbidity present Body mass index: BMI 38.0-38.9 (2) Term of male Status: Acute (3) Fetus large for gestational age, delivered, current hospitalization Status: Acute (4) S/P section Status: Acute (5) Anemia Status: Acute Qualifiers: Anemia type: unspecified type Qualified Code(s): D64.9 - Anemia, u nspecified (6) Chorioamnionitis, delivered, current hospitalization Status: Acute Plan - Discharge Medications Prescriptions: Ferrous Sulfate [Feosol 325 MG tab] 325 mg PO BID #60 tablet Ibuprofen [Motrin] 800 mg PO Q8HR PRN #30 tablet PRN Reason: Pain, Moderate (4-6) oxyCODONE /ACETAMINOPHEN [Percocet 5/325] 1 tab PO Q6HR PRN #40 tablet PRN Reason: Pain - Provider Discharge Summary Activity: routine, no sex for 6 weeks, no heavy lifting 4 weeks, no strenuous exercise Diet: routine Instructions: routine Additional instructions: [] Smoking cessation referral if applicable(refer to patient education folder for contact #) [] Refer to [facility]'s [facility] Booklet Call your doctor immediately for: * Fever > 100.5 * Heavy vaginal bleeding ( >1 pad per hour) * Severe persistent headache * Shortness of breath * Reddened, hot, painful area to leg or breast * Drainage or odor from incision. * Keep incision clean and dry at all times and follow doctor's instructions regarding bathing/showering - Follow up plan Follow up: ARYAN REES MD [Staff Physician] - 7 Days
[2018-08-08 16:37] VITALS: BP 126/82
== END 2018-08-08 17:00 | disposition home or self-care (01) | DRG 766 ==
LOC: LD 20:46 → OB 08-04 22:50
PROVIDERS: ADMIT Obstetrics & Gynecology; ATTEND Obstetrics & Gynecology
PROC: 3E0P7VZ Introduction of Hormone into Female Reproductive, Via Natural or Artificial Opening (ICD-10-PCS; 2018-08-03)
PROC: 10D00Z1 Extraction of Products of Conception, Low, Open Approach (ICD-10-PCS; principal; 2018-08-04)
PROC: 10H07YZ Insertion of Other Device into Products of Conception, Via Natural or Artificial Opening (ICD-10-PCS; 2018-08-04)
PROC: 3E0234Z Introduction of Serum, Toxoid and Vaccine into Muscle, Percutaneous Approach (ICD-10-PCS; 2018-08-05)
DX: O41.1230 Chorioamnionitis, third trimester, not applicable or unspecified (principal); O99.214 Obesity complicating childbirth; O76 Abnormality in fetal heart rate and rhythm complicating labor and delivery; O64.0XX0 Obstructed labor due to incomplete rotation of fetal head, not applicable or unspecified; O36.63X0 Maternal care for excessive fetal growth, third trimester, not applicable or unspecified; O62.0 Primary inadequate contractions; Z37.0 Single live birth; Z3A.40 40 weeks gestation of pregnancy; Z23 Encounter for immunization
CPT/HCPCS: 36415; 59200; 76816; 85014; 85018; 85025; 85027; 86592; 86850; 86900; 86901; 88307; G0378; J0290; J0595; J0690; J1580; J1885; J2210; J2405; J2590; J2765; J3010; J7120; J7121